=== PATIENT | male | born 1940 | race Caucasian/White ===

== ENCOUNTER 2016-12-09 15:02 | Emergency (ER) | payer OTHER, BC ==
[~2016-12-09] VITALS: Ht 179.1 cm; Wt 86.6 kg
[2016-12-09 15:32] VITALS: TEMP 36.6; Ht 179.1 cm; Wt 86.6 kg
--- NOTE | 2016-12-09 16:02 | EMERGENCY ROOM VISIT NOTE ---
ED Visit Note First contact with patient: 15:47 CHIEF COMPLAINT: Animal bite HISTORY OF PRESENT ILLNESS: This 76-year-old male patient presents to the emergency department approximately one hour after they sustained a dog bite to the left hand. The patient states was walking his new, adult, rescue dog, when she got scared, and he reached down to grab her shoulder. When he reached for her, the dog turned around and bit his hand. The patient reports that the animal's immunizations are up to date, including rabies. The patient is on Coumadin, and states the bleeding was initially difficult to control, however did become controlled with direct pressure. The patient complains of very minimal pain, and rates it 7/10 pain at the site of the injury. Pain is worse with movement. Tetanus status is up to date. The patient states his last INR was 1.9 last week. He did attempt to see his PCP, but was sent to the emergency Department due to the bleeding. REVIEW OF SYSTEMS: A 6 system review of systems was completed with positives and pertinent negatives listed in the HPI. ALLERGIES: Please see list. MEDICATIONS: See list. I did personally review the patient's medication list with him at bedside. PMH: Heart disease, hypertension, diabetes PHYSICAL EXAM: Vital Signs reviewed, see Nurse's notes, vital signs stable. GENERAL: This is a 76-year-old male, awake, alert, well appearing, no acute distress. Non toxic in appearance. MUSCULOSKELETAL: Examination of the left hand reveals 2 gaping lacerations. There is no active bleeding. The wound edges do gape apart with and without traction. There is very minimal swelling on inspection. Palpation of the right hand reveals no tenderness. Strength 5/5. No significant crepitus or warmth noted. No joint space, tendon, or vascular involvement. Distal pulses intact. SKIN: No signs of infection. NEURO: No sensory or motor deficits noted over all dermatomes and myotomes tested. EMERGENCY DEPARTMENT COURSE AND DECISION MAKING: I examined the patient. The patient presented with an isolated bite wound as described as above. By the history, there is no concern for rabies exposure. No signs of infection on examination. ER Treatment: Department of Health paperwork completed. Antibiotic prophylaxis is indicated. Verbal consent was obtained to perform the procedure. Using sterile technique the wound was cleaned with Betadine. The area was sterilely draped. 2 ml of 1 % buffered lidocaine with epinephrine was used to locally anesthetize the wounds on the right hand. Once the patient was anesthetized, the wounds were copiously irrigated under pressure with sterile saline. The wounds was explored and there were no deep structures injured such as tendons, bone, or significant blood vessels. The lacerations were repaired using 5 simple interrupted 5-0 nylon sutures, 3 in one laceration, 2 in the other, with the wound edges being well approximated. The patient tolerated the procedure well. Hemostasis was achieved. The area was cleaned with sterile saline and dressed with bacitracin ointment and bandage. The patient was discharged home in good condition. The patient's blood pressure remained stable throughout course of treatment. DIFFERENTIAL DIAGNOSIS: Dog bite, laceration, infection, rabies, and others DIAGNOSIS: Dog bite DISCHARGED INSTRUCTIONS: You have received 5 sutures on your left hand. These sutures are NOT dissolvable and WILL need to be removed by a health care provider in 8-10 days. You can return to the Emergency Department or contact your Primary Care Provider to have the sutures removed. You were prescribed doxycycline and metronidazole to be taken as directed. This is an antibiotic. All antibiotics have the potential to cause diarrhea. Stop this medication and contact a medical provider if you were to develop any significant adverse side effects including: wheezing, shortness of breath, passing out, vomiting, or a diffuse rash. Always take antibiotics as directed and COMPLETE the ENTIRE course regardless of the improvement of your symptoms. Proper wound care is essential for adequate wound healing and infection prevention. You can shower and clean the wound with soap and water. Do not scour over the wound, pat dry with a towel. Do not submerse the wound (i.e. bathe or dish wash) until the sutures have been removed. You can use an antibiotic ointment with a dressing over the wound for the next 3-4 days. After this time you may leave the wound dry and open to the air. If crust develops over the wound you can use a Q-tip to apply a 1:1 peroxide:water solution to clean the wound. Look for signs of infection of the wound including: increased pain, swelling, foul discharge, streaking, or increased temperature. If any of these are noticed you should return to the Emergency Department for further assessment and treatment. As with any laceration you may have received nerve damage to the surrounding tissues. This damage may or may not be permanent. You should keep the area covered with sunscreen for the first 6 months to 1 year when at risk for exposure to help minimize scarring. You can also use scar reducing creams or Vitamin E oil to help minimize scarring. For pain control, you can use the following [id number]-hlz-paicopa medicines (if >12 yo): - Regular strength (325mg/tab) Tylenol (acetaminophen) 2 tabs every 4-6 hours as needed. Do not exceed 9 tablets in a 24 hour period. Avoid taking more than 3 grams (3000 mg) of Tylenol per day. This includes any other sources of acetaminophen you may take on a regular basis. - Regular strength (200 mg/tab) Advil (ibuprofen) 1-2 tabs every 4-6 hours as needed. Do not exceed a dose of 2400 mg per day. Return to the emergency department if your symptoms worsen despite treatment course outlined above. Current/Historical Medications Scheduled Aspirin (Aspirin Ec), 81 MG PO DAILY Carvedilol (Coreg), 1 TAB PO BID Doxycycline (Monohydrate) (Doxycycline), 100 MG PO BID Felodipine (Plendil Er), 2.5 MG PO BID Folic Vevu-Pyehubddif-Ekecmzib (Folbic), 1 TAB PO DAILY Glimepiride (Glimepiride), 1 TAB PO DAILY Glucosamine-Chondroitin (Glucosamine & Chondroitin 500-400 mg), 1 CAP PO DAILY Hydrochlorothiazide (Hctz), 25 MG PO DAILY Metformin Hcl (Glucophage), 850 MG PO BID Metronidazole (Flagyl), 500 MG PO TID Nitroglycerin (Nitrostat), 0.4 MG UT PRN Pravastatin Sodium (Pravachol), 1 TAB PO HS Quinapril Hcl (Accupril), 40 MG PO HS Warfarin Sodium (Coumadin), 4 MG PO DAILY Scheduled PRN Alprazolam (Xanax), 0.5-1 TAB PO TID PRN for Anxiety Clindamycin Hcl (Cleocin), 300 MG PO for DENTAL PROCEDURES Furosemide (Lasix), 20 MG PO for LEG SWELLING Allergies Coded Allergies: Adhesives (Unverified Allergy, Severe, ., 12/09/16) Amlodipine (Unverified Allergy, Severe, ., 12/09/16) Aspartame (Unverified Allergy, Severe, ., 12/09/16) Atenolol (Unverified Allergy, Severe, ., 12/09/16) Bisoprolol (Unverified Allergy, Severe, ., 12/09/16) Lanolin (Unverified Allergy, Severe, ., 12/09/16) Lisinopril (Unverified Allergy, Severe, HEADACHE, 12/09/16) Metoprolol (Unverified Allergy, Severe, DECREASED HR. DIZZY, 12/09/16) Olmesartan (Unverified Allergy, Severe, ., 12/09/16) Oxycodone (Unverified Allergy, Severe, GI INTOLERANCE, 12/09/16) Penicillin G (Unverified Allergy, Severe, ., 12/09/16) Penicillins (Unverified Allergy, Severe, RASH, 12/09/16) Procaine (Unverified Allergy, Severe, ., 12/09/16) Acetaminophen (Unverified Adverse Reaction, Severe, ., 12/09/16) Cetirizine (Unverified Adverse Reaction, Severe, PAIN IN BACK AND NECK, ) Hydrochlorothiazide (Unverified Adverse Reaction, Severe, ., 12/09/16) Hydrocodone (Unverified Adverse Reaction, Severe, ., 12/09/16) Verapamil (Unverified Adverse Reaction, Severe, HEADACHE, 12/09/16) Fenofibrate (Unverified Adverse Reaction, Unknown, INTERFERES WITH OTHER MEDS, 12/09/16) Uncoded Allergies: ASCORBIC ACID (Adverse Reaction, Severe, ., 12/09/16) TYLENOL ARTHRITIS (Adverse Reaction, Unknown, ., 12/09/16) Vital Signs Date Time Temp Pulse Resp B/P (MAP) Pulse Ox O2 Delivery O2 Flow Rate FiO2 12/09/16 17:00 70 16 115/76 97 12/09/16 15:32 36.6 74 16 113/81 97 Room Air Medications Administered Medications (Trade) Dose Ordered Sig/Thelma Route Start Time Stop Time Status Last Admin Dose Admin Lidocaine/ Epinephrine (Xylocaine/Epine 1% Inj) 20 ml ONE ONCE INFIL 12/09/16 16:30 12/09/16 16:31 DC 12/09/16 16:28 20 ML Departure Information Impression Primary Impression: Dog bite Dispostion Home / Self-Care Condition GOOD Prescriptions Metronidazole (Flagyl) 500 Mg Tab 500 MG PO TID for 10 Days, #30 TAB Prov: Jessica Rosario PA-C 12/09/16 Doxycycline (Monohydrate) (Doxycycline) 100 Mg Cap 100 MG PO BID for 10 Days, #20 CAP Prov: Jessica Rosario PA-C 12/09/16 Referrals Monroe Sousa M.D. (PCP) Patient Instructions ED Bite Dog, ED Laceration Ext Sutr Stap Tape, [facility] Additional Instructions You have received 5 sutures on your left hand. These sutures are NOT dissolvable and WILL need to be removed by a health care provider in 8-10 days. You can return to the Emergency Department or contact your Primary Care Provider to have the sutures removed. You were prescribed doxycycline and metronidazole to be taken as directed. This is an antibiotic. All antibiotics have the potential to cause diarrhea. Stop this medication and contact a medical provider if you were to develop any significant adverse side effects including: wheezing, shortness of breath, passing out, vomiting, or a diffuse rash. Always take antibiotics as directed and COMPLETE the ENTIRE course regardless of the improvement of your symptoms. Proper wound care is essential for adequate wound healing and infection prevention. You can shower and clean the wound with soap and water. Do not scour over the wound, pat dry with a towel. Do not submerse the wound (i.e. bathe or dish wash) until the sutures have been removed. You can use an antibiotic ointment with a dressing over the wound for the next 3-4 days. After this time you may leave the wound dry and open to the air. If crust develops over the wound you can use a Q-tip to apply a 1:1 peroxide:water solution to clean the wound. Look for signs of infection of the wound including: increased pain, swelling, foul discharge, streaking, or increased temperature. If any of these are noticed you should return to the Emergency Department for further assessment and treatment. As with any laceration you may have received nerve damage to the surrounding tissues. This damage may or may not be permanent. You should keep the area covered with sunscreen for the first 6 months to 1 year when at risk for exposure to help minimize scarring. You can also use scar reducing creams or Vitamin E oil to help minimize scarring. For pain control, you can use the following [id number] medicines (if >12 yo): - Regular strength (325mg/tab) Tylenol (acetaminophen) 2 tabs every 4-6 hours as needed. Do not exceed 9 tablets in a 24 hour period. Avoid taking more than 3 grams (3000 mg) of Tylenol per day. This includes any other sources of acetaminophen you may take on a regular basis. - Regular strength (200 mg/tab) Advil (ibuprofen) 1-2 tabs every 4-6 hours as needed. Do not exceed a dose of 2400 mg per day. Return to the emergency department if your symptoms worsen despite treatment course outlined above. Problem Qualifiers Primary Impression: Dog bite Encounter type: initial encounter Qualified Codes: W54.0XXA - Bitten by dog , initial encounter
[2016-12-09] MEDS ORDERED: LIDOCAINE/EPINEPHRINE 1% 20 ML VIAL INFIL ONE (16:30)
[2016-12-09] MEDS ORDERED: GLIM4TAB2 PO (16:41)
[2016-12-09] MEDS ORDERED: WARF4TAB PO (16:41)
[2016-12-09] MEDS ORDERED: METF-383 PO (16:41)
[2016-12-09] MEDS ORDERED: ASPI81TA28 PO (16:41)
[2016-12-09] MEDS ORDERED: CLIN300C2 PO (16:41)
[2016-12-09] MEDS ORDERED: FURO-85 PO (16:41)
[2016-12-09] MEDS ORDERED: PRAV40TA PO (16:41)
[2016-12-09] MEDS ORDERED: HYDR25TA4 PO (16:41)
[2016-12-09] MEDS ORDERED: ALPR1TAB3 PO (16:41)
[2016-12-09] MEDS ORDERED: NTRGSL/4 UT (16:41)
[2016-12-09] MEDS ORDERED: QUIN40TA18 PO (16:41)
[2016-12-09] MEDS ORDERED: FELO2.5T PO (16:41)
[2016-12-09] MEDS ORDERED: GLUC1CAP33 PO (16:41)
[2016-12-09] MEDS ORDERED: CARV25TA2 PO (16:41)
[2016-12-09] MEDS ORDERED: FOLITAB21 PO (16:44)
[2016-12-09] MEDS ORDERED: DOXY-300 PO (16:56)
[2016-12-09] MEDS ORDERED: METR-163 PO (16:56)
--- NOTE | 2016-12-09 16:58 | EMERGENCY ROOM VISIT NOTE ---
ED Visit Note First contact with patient: 15:47 I did evaluate and examine this patient myself. I did guide management for the patient. I agree with the APC's assessment as discussed. Please see the APC's dictation for further details. The patient was bitten by his own dog when it became scared. The dog has all its shots. The wound was gaping and bleeding and so sutures were placed by Jessica. I did carefully go over return instructions with him and advised him to watch for any signs of infection. He was discharged with doxycycline and Flagyl.
[2016-12-09 17:00] VITALS: BP 115/76; PULSE 70; O2SAT 97
--- NOTE | 2016-12-13 09:45 | EDITING REQUIRED CODING QUERY ---
LENGTH OF LACERATION To promote full compliance with coding requirements relating to patient care, physician participation is requested in all cases of slab off mill tender uncertainty. Please assist us with the question(s) below: Please document the length of the (LEFT HAND) laceration(s). Please type the length in cm within the parenthesis () below. PLEASE ALSO VERIFY THE LATERALITY OF THE INJURY. RIGHT AND LEFT HAND ARE SPECIFIED IN THE ED NOTE. (LEFT HAND) laceration(s) is ( ) cm. LATERALITY: Thank you Jenny Becker
--- NOTE | 2017-01-07 11:03 | EDITING REQUIRED CODING QUERY ---
LENGTH OF LACERATION To promote full compliance with coding requirements relating to patient care, physician participation is requested in all cases of physicist solid earth uncertainty. Please assist us with the question(s) below: Please document the length of the (physicist solid earth edit site) laceration. Please type the length in cm within the parenthesis () below. (LEFT HAND) laceration is ( ) cm. PLEASE ALSO VERIFY THE LATERALITY OF THE HAND INJURY. RIGHT AND LEFT ARE BOTH SPECIFIED IN THE ED NOTE. Thank you Jenny Becker
== END 2016-12-09 17:14 | disposition home or self-care (01) ==
LOC: C.EDB 15:03 → C.EDD 17:14
DX: S61.452A Open bite of left hand, initial encounter (principal); W54.0XXA Bitten by dog, initial encounter; Y93.K1 Activity, walking an animal; I10 Essential (primary) hypertension; E11.9 Type 2 diabetes mellitus without complications; Z79.01 Long term (current) use of anticoagulants; Z79.84 Long term (current) use of oral hypoglycemic drugs; Z79.82 Long term (current) use of aspirin